=== PATIENT | female | born 1990 | race Caucasian/White ===

== ENCOUNTER 2017-12-11 17:46 | Inpatient (IN) | payer BC ==
[~2017-12-11] VITALS: Ht 167.6 cm; Wt 91.0 kg
[2017-12-11] VITALS (8 sets, daily range): BP systolic 128–131; BP diastolic 78–90; PULSE 80–84; RESP 18; TEMP 98.7
[~2017-12-11 17:46] MED LIST: HYDR25TA5 PO
[2017-12-11] MEDS ORDERED: SODIUM CHLOR 0.9% 1000 ML INJ 1,000 ML OTHER PRN (18:28)
[2017-12-11] MEDS ORDERED: LACTATED RINGER'S 1000 ML INJ 1,000 ML IV SCH (18:28)
[2017-12-11] MEDS ORDERED: LACTATED RINGER'S 1000 ML INJ 1,000 ML IV PRN ×2 (18:28→18:35)
[2017-12-11] MEDS ORDERED: MINERAL OIL 10 ML VIAL TOPICAL PRN ×2 (18:30→18:45)
[2017-12-11] MEDS ORDERED: SODIUM CHLORID 0.9% 500 ML INJ 500 ML IV PRN ×2 (18:30→18:45)
[2017-12-11] MEDS ORDERED: LIDOCAINE HCL 1% 50 ML VIAL I-DERMAL PRN ×2 (18:30→18:45)
[2017-12-11] MEDS ORDERED: ONDANSETRON HCL 4 MG/2 ML VIAL IV PUSH PRN (18:30)
[2017-12-11] MEDS ORDERED: LIDOCAINE HCL 1% 50 ML VIAL INFIL PRN ×2 (18:30→18:45)
[2017-12-11] MEDS ORDERED: OXYTOCIN 30 UNITS-500ML PREMIX 500 ML IV ONE ×2 (18:30→18:45)
[2017-12-11] MEDS ORDERED: CITRIC ACID-SODIUM CITRATE LIQ 30 ML UDC PO SCH ×2 (18:30→18:45)
[2017-12-11] MEDS ORDERED: DINOPROSTONE 10 MG VAG INSERT VAGINAL ONE ×2 (18:30→18:45)
--- NOTE | 2017-12-11 18:41 | HHI.HP ---
HPI Chief Complaint term labor induction Date Seen: Dec 11, 2017 Time Seen: 18:30 Travel History International Travel<30 Days: No Contact w/Intl Traveler<30Days: No Known Affected Area: No History of Present Illness HPI 27 yo G1 with EDC 12/11/17 presents for term labor induction. Seen last in office 12/10/17 with finding of 2+ edema to LE. BP normal, no proteinuria. SVE at that time 1-2/50/-2. D/w pt based on new edema and term status option of labor induction, pt strongly desires. Pain 2-3/10 in low pelvis, cramping and pressure. No VB, no LOF. Good FM. Weeks Gestation: 40 Para: 0 : 1 Last Menstrual Period: Mar 13, 2017 Miscarriage: 0 : 0 History Past Medical History Narrative Medical denies Obstetric History Obstetric History G1 = current Past Surgical History Narrative Surgical denies Family History Family History: Negative Social History Alcohol Use: No Tobacco Use: No Substance Abuse: No Allergies-Medications (Allergen,Severity, Reaction): Coded Allergies: No Known Allergies (Unverified , 08/26/16) Home Meds Reported Medications Hydrochlorothiazide (Hydrochlorothiazide) 25 Mg Tab, 25 MG PO DAILY, #30 TAB 0 Refills 08/26/16 Review of Systems General / Constitutional: Weight Gain, No: Fever, Chills, Other Eyes: No: Diploplia, Blurred Vision, Visual changes, Pain, Photophobia HENT: No: Headaches, Vertigo, Lightheadedness Cardiovascular: No: Irregular Rhythm, Chest Pain or Discomfort, Palpitations, Tachycardia, Syncope, Varicosities, Edema, Cyanosis Respiratory: No: Cough, Short of Breath, Other Gastrointestinal: No: Nausea, Vomiting, Diarrhea Genitourinary: Pelvic Pain (pressure), No: Decreased Urinary Output, Oliguria Musculoskeletal: Edema (2+ b/l abnkles), No: Limited ROM, Weakness, Cramping, Pain Skin: No Rash, No Itching, No Dryness, No Lumps, No Change in Pigmentation, No Change in Nails, No Alopecia, No Lesions Neurologic: No: Weakness, Dizziness, Syncope, Focal Abnormalities, Coordination Problem, Headache, Slurred Speech, Seizures Psychiatric: No: Depression, Suicidal Ideations, Homicidal Ideation Endocrine: No: Heat Intolerance, Cold Intolerance, Polydipsia, Polyuria, Other Physical Exam Narrative GENERAL: Well-nourished, well-developed patient. Puffy appearance SKIN: Warm and dry. HEAD: Normocephalic and atraumatic. EYES: No scleral icterus. No injection or drainage. ENT: No nasal drainage noted. Mucous membranes pink. Airway patent. NECK: Supple, trachea midline. No JVD. CARDIOVASCULAR: Regular rate and rhythm without murmurs, gallops, or rubs. RESPIRATORY: Breath sounds equal bilaterally. No accessory muscle use. BREASTS: deferred ABDOMEN/GI: Abdomen soft, non-tender, bowel sounds present, no rebound, no guarding Gravid to [40] weeks size Fundal Height: [41] GENITOURINARY: External Genitalia: intact and normal in appearance BUS glands: [wnl] Cervix: [mid] Dilatation: [1-2] Effacement: [50] Station: [-2] Presentation: [vtx] Membranes: [intact] Uterine Contractions: [irreg] FHT's: NST pending; +FCA in office 150s EXTREMITIES: No cyanosis; 2+ edema to b/l ankles. BACK: Nontender without obvious deformity. No CVA tenderness. NEUROLOGICAL: Awake and alert. Motor and sensory grossly within normal limits. Five out of 5 muscle strength in all muscle groups. Normal speech. Caprini VTE Risk Assessment Caprini VTE Risk Assessment: No/Low Risk (score <= 1) VTE Pharm Contraindication: High risk for bleeding Caprini Risk Assessment Model Point Value = 1 Point Value = 2 Point Value = 3 Point Value = 5 Age 41-60 Minor surgery BMI > 25 kg/m2 Swollen legs Varicose veins or History of unexplained or recurrent spontaneous Oral contraceptives or hormone replacement Sepsis (< 1 month) Serious lung disease, including pneumonia (< 1 month) Abnormal pulmonary function Acute myocardial infarction Congestive heart failure (< 1 month) History of inflammatory bowel disease Medical patient at bed rest Age 61-74 Arthroscopic surgery Major open surgery (> 45 min) Laparoscopic surgery (> 45 min) Malignancy Confined to bed (> 72 hours) Immobilizing plaster cast Central venous access Age >= 75 History of VTE Family history of VTE Factor V Leiden Prothrombin [id number] Lupus anticoagulant Anticardiolipin antibodies Elevated serum homocysteine Heparin-induced thrombocytopenia Other congenital or acquired thrombophilia Stroke (< 1 month) Elective arthroplasty Hip, pelvis, or leg fracture Acute spinal cord injury (< 1 month) Prophylaxis Regimen Total Risk Factor Score Risk Level Prophylaxis Regimen 0-1 Low Early ambulation 2 Moderate Order ONE of the following: *Sequential Compression Device (SCD) *Heparin 5000 units SQ BID 3-4 Higher Order ONE of the following medications: *Heparin 5000 units SQ TID *Enoxaparin/Lovenox 40 mg SQ daily (WT < 150 kg, CrCl > 30 mL/min) *Enoxaparin/Lovenox 30 mg SQ daily (WT < 150 kg, CrCl > 10-29 mL/min) *Enoxaparin/Lovenox 30 mg SQ BID (WT < 150 kg, CrCl > 30 mL/min) AND/OR *Sequential Compression Device (SCD) 5 or more Highest Order ONE of the following medications: *Heparin 5000 units SQ TID (Preferred with Epidurals) *Enoxaparin/Lovenox 40 mg SQ daily (WT < 150 kg, CrCl > 30 mL/min) *Enoxaparin/Lovenox 30 mg SQ daily (WT < 150 kg, CrCl > 10-29 mL/min) *Enoxaparin/Lovenox 30 mg SQ BID (WT < 150 kg, CrCl > 30 mL/min) AND *Sequential Compression Device (SCD) Data Data Vital Signs Reviewed: Yes Orders Orders Admit To Inpatient (12/11/17 ) Code Status (12/11/17 18:28) Vital Signs (Adult) .Per protocol (12/11/17 18:28) Activity Oob Ad Melania (12/11/17 18:28) Heart (12/11/17 18:28) Amnioinfusion (12/11/17 18:28) Urinary Catheter Management .ONCE (12/11/17 18:28) Diet Liquid (12/11/17 Dinner) Lactated Ringer's 1000 Ml Inj (Lr 1000 M (12/11/17 18:28) Lactated Ringer's 1000 Ml Inj (Lr 1000 M (12/11/17 18:28) Sodium Chlorid 0.9% 500 Ml Inj (Ns 500 M (12/11/17 18:30) Sodium Chlor 0.9% 1000 Ml Inj (Ns 1000 M (12/11/17 18:48) Lidocaine 1% Inj (50 Ml) (Xylocaine 1% I (12/11/17 18:30) Citric Acid-Sodium Citrate Liq (Bicitra (12/11/17 18:30) Ondansetron Inj (Zofran Inj) (12/11/17 18:30) Fentanyl Inj (Fentanyl Inj) (12/11/17 18:30) Fentanyl Inj (Fentanyl Inj) (12/11/17 18:30) Complete Blood Count With Diff (12/11/17:) Hold Clot (12/11/17:) Abo/Rh Blood Type (12/11/17 18:) Urinalysis - C+S If Indicated (12/11/17:) Drug Screen, Random Urine (12/11/17) Ob/Psych Drug Screen, Urine (12/11/17:) Resp Oxygen Non Rebreathe Mask (12/11/17 ) ^ Epidural / Intrathecal Infus (12/11/17:) Oxytocin 30 Units-500ml Premix (Pitocin (12/11/17 18:) Lidocaine 1% Inj (50 Ml) (Xylocaine 1% I (12/11/17 18:30) Light Mineral Oil (Muri-Lube Oil) (12/11/17 18:30) ^ Labor Induction (12/11/17 18:) ^ Vaginal Insert (12/11/17 18:) ^ Vaginal Lavage (12/11/17 18:) Heart (12/11/17 18:) Sodium Chlor 0.9% 1000 Ml Inj (Ns 1000 M (12/11/17 18:28) Dinoprostone Vag Insert (Cervidil Vag In (12/11/17 18:30) Inpatient Certification (12/11/17 ) Specimen To Be Collected PRN (12/11/17 18:28) Specimen To Be Collected PRN (12/11/17 18:) Group B Strep: Negative Assessment/Plan Problem List: (1) Term ICD Codes: Z34.80 - Encounter for supervision of other normal , unspecified trimester Status: Acute Assessment and Plan 27 yo G1 with guardado female IUP at 40w0d by LMP c/w 8w6d ultrasound, admit for term labor induction, new LE edema b/l 1) IOL: start with cervidil overnight, additional induction methods as needed, pt aware of risks of induction including failure, need for , consents for induction 2) GBS negative 3) LE edema: BP wnl in office, no proteinuria, will monitor closely 4) status: vtx, female, EFW 8.5# 5) dispo: not meeting criteria, anticipate d/c on PPD#2-3 Discharge Planning routine, 2-3d PP Abi Jimenez MD Dec 11, 2017 18:41
[2017-12-11] MEDS ORDERED: SODIUM CHLORIDE 0.9% FLUSH 10 ML FLUSH IV FLUSH PRN (18:45)
[2017-12-11] MEDS ORDERED: SODIUM CHLOR 0.9% 1000 ML INJ 1,000 ML IV PRN ×2 (18:48→18:55)
[2017-12-11 19:13] LABS: AUTOMATED NEUTROPHIL # 11.4 TH/MM3 (1.8-7.7); BASOPHIL % 0.1 % (0.0-2.0); EOSINOPHIL % 0.3 % (0.0-4.0); HEMATOCRIT 37.4 % (35.0-46.0); HEMOGLOBIN 12.9 GM/DL (11.6-15.3); LYMPH % 13.7 % (9.0-44.0); LYMPHOCYTE # 1.9 TH/MM3 (1.0-4.8); MEAN CELL VOLUME 96.4 FL (80.0-100.0); MEAN CORPUSCULAR HEMOGLOBIN 33.2 PG (27.0-34.0); MEAN CORPUSCULAR HGB CONC 34.5 % (32.0-36.0); MEAN PLATELET VOLUME 9.4 FL (7.0-11.0); MONO % 5.4 % (0.0-8.0); MONOCYTE # 0.8 TH/MM3 (0-0.9); NEUT % 80.5 % (16.0-70.0); PLATELET COUNT 171 TH/MM3 (150-450); RED BLOOD COUNT 3.88 MIL/MM3 (4.00-5.30); RED CELL DISTRIBUTION WIDTH 13.8 % (11.6-17.2); WHITE BLOOD COUNT 14.2 TH/MM3 (4.0-11.0)
[2017-12-11 19:15] LABS: BACTERIA, URINE RARE /hpf; BILIRUBIN, URINE NEG (NEG); BLOOD, URINE NEG (NEG); GLUCOSE,URINE NEG (NEG); KETONE, URINE TRACE mg/dL (NEG); NITRITE,URINE NEG (NEG); PH, URINE 6.5 (5.0-8.5); URINE COLOR LIGHT-YELLOW (YELLW/STRAW); URINE LEUKOCYTE ESTERASE NEG (NEG)
[2017-12-11] MEDS: LACTATED RINGER'S 1000 ML INJ 1,000 ML IV SCH (19:19)
[2017-12-11] MEDS: SODIUM CHLORIDE 0.9% FLUSH 10 ML FLUSH IV FLUSH SCH (21:00)
[2017-12-11 22:54] LABS: ALBUMIN 3.2 GM/DL (3.4-5.0); AST (GOT) 18 U/L (15-37); BICARBONATE 21.3 MEQ/L (21.0-32.0); BLOOD UREA NITROGEN 4 MG/DL (7-18); CALCIUM 9.6 MG/DL (8.5-10.1); CHLORIDE 105 MEQ/L (98-107); GLOMERULAR FILTRATION RATE 146 ML/MIN (>89); GLUCOSE,RANDOM 94 MG/DL (74-106); SODIUM (NA) 138 MEQ/L (136-145)
[2017-12-11 22:55] LABS: ALT (GPT) 20 U/L (10-53)
[2017-12-11 22:57] LABS: ALKALINE PHOSPHATASE 229 U/L (45-117); TOTAL BILIRUBIN ADULT 0.3 MG/DL (0.2-1.0); TOTAL PROTEIN 7.1 GM/DL (6.4-8.2)
[2017-12-12] VITALS (106 sets, daily range): BP systolic 81–155; BP diastolic 36–121; PULSE 19–191; RESP 16–20; TEMP 97.8–98.5
--- NOTE | 2017-12-12 08:11 | HHI.PR ---
RATING EXAMINER Note Note S: Patient doing well, minimal pain, slight headache, no visual changes, epigastric pain or right upper quadrant pain. Occasionally feel her contractions, no vaginal bleeding or loss of fluid. O: Exam: 4 cm/70-80% effaced/-2 station/soft/midposition. Martinez score 8 FHTs: 130s, moderate variability, accelerations present, no decelerations TOCO: Contractions are regular every 3-5 minutes A/P 27-year-old G1 at 40 weeks and 1 day by L/8 here for social IOL. 1. IUP: Category 1 tracing -Cephalic on exam, GBS negative, EFW 7/2-8 pounds, female fetus. 2. Induction of labor: Status post Cervidil overnight, BS of 8, begin Pitocin, AROM later, may desire epidural. 3. Gestational hypertension: Diagnosed on admission, HELLP labs WNL, P:C 0.2, slight headache, no visual sx, discussed preeclampsia precautions, if MALONE worsens consider magnesium for seizure prophylaxis. 4. Glucose intolerance: Failed 1 hour 170, passed 3 hour. Nash Soto MD Dec 12, 2017 08:11
[2017-12-12] MEDS ORDERED: OXYTOCIN 30 UNITS-500ML PREMIX 500 ML IV PRN (08:15)
[2017-12-12] MEDS: SODIUM CHLORIDE 0.9% FLUSH 10 ML FLUSH IV FLUSH SCH ×2 (09:00→21:12)
[2017-12-12] MEDS: LACTATED RINGER'S 1000 ML INJ 1,000 ML IV SCH ×2 (12:00→18:35)
[2017-12-12] MEDS ORDERED: ePHEDrine/NS 25 MG/5 ML SYRINGE ONE (12:07)
[2017-12-12] MEDS ORDERED: fentaNYL 2MCG-BUPIV 0.125% INJ 100 ML ONE (12:07)
[2017-12-12] MEDS ORDERED: NO SYSTEM NARCOTICS PRN (14:15)
[2017-12-12] MEDS ORDERED: fentaNYL 2MCG-BUPIV 0.125% 100 ML EPIDURAL SCH (14:15)
[2017-12-12] MEDS ORDERED: DO NOT ADMINISTER ANTICOAGULANTS PRN (14:15)
[2017-12-12] MEDS ORDERED: ePHEDrine/NS 25 MG/5 ML SYRINGE IV PUSH PRN (14:15)
[2017-12-12] MEDS ORDERED: DIPHTH/TETANUS/ACEL PERTUSSIS (BOOSTER) 0.5 ML VIAL/PFS IM ONE (16:00)
[2017-12-12] MEDS ORDERED: MEASLES, MUMPS, RUBELLA VACCINE 0.5 ML VIAL SQ ONE (16:00)
[2017-12-12] MEDS ORDERED: LIDOCAINE HCL 1% 20 ML VIAL ONE (17:37)
--- NOTE | 2017-12-12 19:42 | PD.OB.DELI ---
Weeks gestation: 40 (40 weeks and 1 day) Pt started active labor?: No Medical induction of labor?: No Artificial rupture of membrane: No Anesthesia: Epidural Episiotomy: None Vaginal Delivery: Normal, Spontaneous Presentation: Occiput anterior, Vertex Nuchal Cord: None Delayed cord clamping (45 sec): Yes Shoulder Dystocia: Other (No dystocia) : Female, Single Delivery date: Dec 12, 2017 Delivery time: 18:53 One Minute : 9 Ten Minute : 9 Placenta: Spontaneous delivery, Intact, 3 vessel cord Laceration: Vaginal laceration, Perineal laceration, 3 deg (3a laceration), Involving anal sphincter Repair: Vicryl interrupted, Vicryl running Estimated blood loss: 400 cc Additional Information Preoperative diagnoses: 1. Intrauterine 40 weeks and 1 day 2. Gestational hypertension 3. Glucose intolerance Findings: IIIa perineal laceration, repaired in standard fashion, reinforced external anal sphincter with interrupted 3-0 Vicryl. Specimens: Placenta to disposal Complications: None Counts: Correct 2 Description of procedure: The patient began pushing after the bed was broken down, the head upon was allowed to restitute naturally after delivery with a supported perineum, with gentle downward guidance the anterior shoulder was delivered followed by gentle upper guidance for the posterior shoulder, the torso and lower extremities delivered with ease with continued perineal support. The had spontaneous cry and was placed on mom's abdomen for skin to skin contact, we allowed delayed cord clamping. After the cord was clamped and cut, cord blood was obtained. Pitocin was bolused and with fundal massage the placenta was delivered, there was minimal bleeding from above and uterus was firm. The perineum vagina and cervix were inspected and and a 3a laceration was found and repaired in standard fasion, a rectal exam exam was done to make sure prior to repair the extent of laceration. The patient tolerated the procedure well and was left in the birthing suite with her . Nash Soto MD Dec 12, 2017 19:42
[2017-12-12] MEDS ORDERED: SODIUM CHLORIDE 0.9% FLUSH 10 ML FLUSH IV FLUSH PRN (19:45)
[2017-12-12] MEDS ORDERED: WITCH HAZEL 50%/GLYCERIN 12.5% 40 PAD JAR TOPICAL PRN (19:45)
[2017-12-12] MEDS ORDERED: ZOLPIDEM TARTRATE 5 MG TAB PO PRN (19:45)
[2017-12-12] MEDS ORDERED: BENZOCAINE 20% TOPICAL SPRAY 60 ML CAN TOPICAL PRN (19:45)
[2017-12-12] MEDS ORDERED: ACETAMINOPHEN 325 MG TAB PO PRN (19:45)
[2017-12-12] MEDS ORDERED: ALUMINUM/MAGNESIUM/SIMETH 30 ML CUP PO PRN (19:45)
[2017-12-12] MEDS ORDERED: oxyCODONE/ACETAMINOPHEN 5 MG/325 MG TAB PO PRN ×2 (19:45)
[2017-12-12] MEDS ORDERED: OXYTOCIN 30 UNITS-500ML PREMIX 500 ML IV SCH (19:45)
[2017-12-12] MEDS ORDERED: ONDANSETRON ODT 4 MG TAB PO PRN (19:45)
[2017-12-12] MEDS ORDERED: IBUP-232 PO (19:50)
[2017-12-12] MEDS ORDERED: NORC5TAB PO (19:51)
--- NOTE | 2017-12-12 19:52 | HHI.DCPOC ---
Discharge Care Plan Diagnosis: (1) 40 weeks gestation of (2) Normal vaginal delivery (3) Gestational hypertension (4) Third degree perineal laceration during delivery, IIIa Your Health Problems Are: Vaginal delivery Report Symptoms to Your Doctor -Temperature above 100.5 degrees -Redness, of incision or excessive or foul smelling drainage -Unusual pain or calf pain -Increased vaginal bleeding -Painful or difficulty urinating -Feelings of extreme sadness or anxiety after 2 weeks Goals to Promote Your Health * To prevent worsening of your condition and complications * To maintain your health at the optimal level Directions to Meet Your Goals Take your medications as prescribed Follow your dietary instruction Follow activity as directed Ensure plenty of rest for recovery Drink fluids for hydration Keep your appointments as scheduled Take your immunizations and boosters as scheduled If your symptoms worsen call your PCP, if no PCP go to Urgent Care Center or Emergency Room Smoking is Dangerous to Your Health. Avoid second hand smoke Call the 24-hour crisis hotline for domestic abuse at Nash Soto MD Dec 12, 2017 19:51
[2017-12-12] MEDS: IBUPROFEN 800 MG TAB PO PRN (19:54)
[2017-12-13] MEDS: IBUPROFEN 800 MG TAB PO PRN ×3 (05:58→23:22)
--- NOTE | 2017-12-13 07:40 | HHI.OB ---
Subjective Post Day: 1 Remarks Doing well, pain controlled, minimal vaginal bleeding. Objective Vitals/I&O Vital Signs Date Time Temp Pulse Resp B/P (MAP) Pulse Ox O2 Delivery O2 Flow Rate FiO2 12/12/17 21:11 97.9 12/12/17 21:11 89 18 122/76 (91) 12/12/17 20:45 86 120/67 (84) 12/12/17 20:30 93 124/65 (84) 12/12/17 20:18 98.0 16 12/12/17 20:16 95 129/67 (87) 12/12/17 20:15 18 12/12/17 20:00 94 18 139/98 (112) 12/12/17 19:48 96 127/74 (91) 12/12/17 19:46 118 12/12/17 19:01 111 123/44 (70) 12/12/17 18:50 145 18 18:45 144 127/87 (100) 12/12/17 18:45 18 12/12/17 18:32 111 129/68 (88) 12/12/17 18:30 119 12/12/17 18:15 20 12/12/17 17:25 99 12/12/17 17:20 99 12/12/17 17:15 85 12/12/17 17:15 103 155/121 (132) 12/12/17 17:01 108 141/83 (102) 12/12/17 17:00 18 12/12/17 17:00 97.8 19 12/12/17 17:00 118 12/12/17 16:55 112 12/12/17 16:50 113 18 16:46 105 142/68 (92) 12/12/17 16:45 105 18 16:40 112 12/12/17 16:35 100 12/12/17 16:30 112 12/12/17 16:30 102 17 133/96 (108) 12/12/17 16:25 98 18 16:20 87 12/12/17 16:15 99 120/76 (91) 12/12/17 16:15 79 12/12/17 16:10 77 18 16:05 77 12/12/17 16:01 96 114/84 (94) 1618 16:00 86 18 16/18 15:55 85 /16/18 15:50 94 16/18 15:46 88 123/74 (90) 1618 15:45 90 /16/18 15:40 126 /16/18 15:35 95 /16/18 15:31 125 119/85 (96) 1618 15:30 99 1618 15:25 94 1618 15:20 93 16/18 15:15 86 1618 15:10 85 1618 15:05 90 1618 15:01 94 126/80 (95) 18 15:00 17 1618 15:00 92 1618 14:55 84 1618 14:50 89 1618 14:45 92 16/18 14:40 78 1618 14:35 87 1618 14:31 77 126/81 (96) 1618 14:30 79 /16/18 14:30 18 16/18 14:25 77 /16/18 14:20 76 1618 14:15 78 16/18 14:15 75 124/81 (95) 1618 14:05 75 /16/18 14:01 72 114/75 (88) 1618 14:00 83 16/18 13:55 80 16/18 13:50 68 16/18 13:46 191 96/66 (76) 1618 13:45 89 /16/18 13:40 88 16/18 13:35 79 /16/18 13:30 74 3/16/18 13:30 83 111/78 (89) 1618 13:29 98.0 17 316/18 13:25 77 3/16/18 13:20 83 3/16/18 13:15 71 16/18 13:15 80 117/68 (84) 1618 13:10 83 16/18 13:09 110/72 (85) 1618 13:09 74 3/16/18 13:06 74 12/12/17 13:05 75 12/12/17 13:03 18 12/12/17 13:01 85 128/72 (90) 12/12/17 13:00 84 12/12/17 12:56 90 131/75 (93) 12/12/17 12:55 74 12/12/17 12:51 80 17 128/69 (88) 12/12/17 12:50 77 12/12/17 12:46 78 128/68 (88) 12/12/17 12:45 86 12/12/17 12:43 78 18 126/74 (91) 12/12/17 12:41 87 81/36 (51) 12/12/17 12:40 91 12/12/17 12:35 84 12/12/17 12:35 91 139/74 (95) 12/12/17 12:33 103 145/75 (98) 12/12/17 11:57 17 12/12/17 11:30 18 12/12/17 10:25 17 12/12/17 10:18 81 127/77 (94) 12/12/17 09:16 18 12/12/17 09:15 87 124/77 (93) Objective Remarks GENERAL: Well-nourished, well-developed patient. CARDIOVASCULAR: Regular rate and rhythm without murmurs, gallops, or rubs. RESPIRATORY: Breath sounds equal bilaterally. No accessory muscle use. ABDOMEN/GI: Abdomen soft, non-tender. Fundus: Firm, non-tender at umbilicus. GENITOURINARY: Light to moderate bleeding. EXTREMITIES: No cyanosis or edema, non-tender, without signs of DVT. Medications and IVs Current Medications Medications (Trade) Dose Ordered Sig/Valentín Route Start Time Stop Time Status Last Admin (Xylocaine 1% Inj (50 ml)) 0.1 ml UNSCH X1 PRN I-DERMAL 12/11/17 18:45 12/14/17 18:44 (Xylocaine 1% Inj (50 ml)) 10 ml UNSCH X1 PRN INFIL 12/11/17 18:45 12/13/17 18:44 (Muri-Lube Oil) 10 ml UNSCH PRN TOPICAL 12/11/17 18:45 Miscellaneous Information No systemic narcotics to be given except... UNSCH PRN .XX 12/12/17 14:15 12/13/17 14:14 Miscellaneous Information DO NOT ADMINISTER ANY ANTICOAGUL... UNSCH PRN .XX 12/12/17 14:15 12/13/17 14:14 (ePHEDrine/NS 25 MG/5 ML SYR) 10 mg UNSCH PRN IV PUSH 12/12/17 14:15 12/13/17 14:14 (NS Flush) 2 ml BID IV FLUSH 12/12/17 21:00 12/12/17 21:12 (NS Flush) 2 ml UNSCH PRN IV FLUSH 12/12/17 19:45 (Tylenol) 650 mg Q4H PRN PO 12/12/17 19:45 (Motrin) 800 mg Q8H PRN PO 12/12/17 19:45 12/13/17 05:58 (Percocet 5-325 Mg) 1 tab Q4H PRN PO 12/12/17 19:45 (Percocet 5-325 Mg) 2 tab Q4H PRN PO 12/12/17 19:45 (Americaine 20% Top Spr) 1 spray Q4H PRN TOPICAL 12/12/17 19:45 12/12/17 21:21 (Tucks Pads) 1 applic QID PRN TOPICAL 12/12/17 19:45 12/12/17 21:21 (Gisela-Colace) 2 tab Q12H PO 12/12/17 21:00 (Ambien) 5 mg HS PRN PO 12/12/17 19:45 (Mag-Al Plus Susp Liq) 15 ml Q8H PRN PO 12/12/17 19:45 (Zofran Odt) 4 mg Q6H PRN PO 12/12/17 19:45 Assessment/Plan Problem List: (1) Term ICD Codes: Z34.80 - Encounter for supervision of other normal , unspecified trimester Status: Acute Assessment and Plan 27 yo s/p at 40.1w 1) PPD#1: Afebrile, vital signs stable, anticipate discharge home later today or tomorrow. Discussed discharge precautions, expectations, and follow-up. 2) gestational hypertension: Blood pressures mostly normotensive following delivery, no signs or symptoms of preeclampsia, discussed these sx for after discharge, will follow up in 1 week for blood pressure check. Nash Soto MD Dec 13, 2017 07:39
[2017-12-13 09:00] VITALS: BP 112/65; PULSE 72; RESP 18; TEMP 97.8
[2017-12-13] MEDS: DOCUSATE SODIUM 50 MG/SENNA 8.6 MG TAB PO SCH ×2 (14:27→21:24)
[2017-12-13] MEDS: SODIUM CHLORIDE 0.9% FLUSH 10 ML FLUSH IV FLUSH SCH (14:27)
[2017-12-13 21:30] VITALS: BP 113/72; PULSE 74; RESP 20; TEMP 98.9
[2017-12-14] MEDS ORDERED: COLA100C5 PO (08:54)
--- NOTE | 2017-12-14 08:56 | HHI.OB ---
Subjective Post Day: 2 Remarks Doing well, pain controlled, minimal vaginal bleeding. Objective Vitals/I&O Vital Signs Date Time Temp Pulse Resp B/P (MAP) Pulse Ox O2 Delivery O2 Flow Rate FiO2 12/13/17 21:30 74 20 113/72 (86) 12/13/17 21:30 98.9 12/13/17 09:00 97.8 72 18 112/65 (81) Objective Remarks GENERAL: Well-nourished, well-developed patient. CARDIOVASCULAR: Regular rate and rhythm without murmurs, gallops, or rubs. RESPIRATORY: Breath sounds equal bilaterally. No accessory muscle use. ABDOMEN/GI: Abdomen soft, non-tender. Fundus: Firm, non-tender at umbilicus. GENITOURINARY: Light to moderate bleeding. EXTREMITIES: No cyanosis or edema, non-tender, without signs of DVT. Medications and IVs Current Medications Medications (Trade) Dose Ordered Sig/Valentín Route Start Time Stop Time Status Last Admin (Xylocaine 1% Inj (50 ml)) 0.1 ml UNSCH X1 PRN I-DERMAL 12/11/17 18:45 12/14/17 18:44 (Muri-Lube Oil) 10 ml UNSCH PRN TOPICAL 12/11/17 18:45 (NS Flush) 2 ml BID IV FLUSH 12/12/17 21:00 12/13/17 14:27 (NS Flush) 2 ml UNSCH PRN IV FLUSH 12/12/17 19:45 (Tylenol) 650 mg Q4H PRN PO 12/12/17 19:45 (Motrin) 800 mg Q8H PRN PO 12/12/17 19:45 12/13/17 23:22 (Percocet 5-325 Mg) 1 tab Q4H PRN PO 12/12/17 19:45 (Percocet 5-325 Mg) 2 tab Q4H PRN PO 12/12/17 19:45 (Americaine 20% Top Spr) 1 spray Q4H PRN TOPICAL 12/12/17 19:45 12/12/17 21:21 (Tucks Pads) 1 applic QID PRN TOPICAL 12/12/17 19:45 12/12/17 21:21 (Gisela-Colace) 2 tab Q12H PO 3/16/18 21:00 12/13/17 21:24 (Ambien) 5 mg HS PRN PO 12/12/17 19:45 (Mag-Al Plus Susp Liq) 15 ml Q8H PRN PO 12/12/17 19:45 (Zofran Odt) 4 mg Q6H PRN PO 12/12/17 19:45 Assessment/Plan Problem List: (1) Term ICD Codes: Z34.80 - Encounter for supervision of other normal , unspecified trimester Status: Acute Assessment and Plan 27 yo s/p at 40.1w 1) PPD#2: Afebrile, vital signs stable, anticipate discharge home today, baby has hyperbili, may need observation, pt aware of stay close and rooming in options. later today or tomorrow. Discussed discharge precautions, expectations , and follow-up. Pt w/ hx of PTSD and discussed PP blues and depression sn/sx. 2) gestational hypertension: Blood pressures mostly normotensive following delivery, no signs or symptoms of preeclampsia, discussed these sx for after discharge, will follow up in 1 week for blood pressure check. Nash Soto MD Dec 14, 2017 08:56
[2017-12-14] MEDS: SODIUM CHLORIDE 0.9% FLUSH 10 ML FLUSH IV FLUSH SCH (10:20)
[2017-12-14] MEDS: DOCUSATE SODIUM 50 MG/SENNA 8.6 MG TAB PO SCH (13:48)
[2017-12-14] MEDS: IBUPROFEN 800 MG TAB PO PRN (13:48)
== END 2017-12-14 18:11 | disposition home or self-care (01) | DRG 775 ==
LOC: H2EA 17:46 → H1EA 12-12 21:06
PROVIDERS: ADMIT Obstetrics & Gynecology; ATTEND Obstetrics & Gynecology
PROC: 10E0XZZ Delivery of Products of Conception, External Approach (ICD-10-PCS; principal; 2017-12-12)
PROC: 0DQR0ZZ Repair Anal Sphincter, Open Approach (ICD-10-PCS; 2017-12-12)
PROC: 3E0P7VZ Introduction of Hormone into Female Reproductive, Via Natural or Artificial Opening (ICD-10-PCS; 2017-12-12)
PROC: 00HU33Z Insertion of Infusion Device into Spinal Canal, Percutaneous Approach (ICD-10-PCS; 2017-12-12)
PROC: 3E0R3BZ Introduction of Anesthetic Agent into Spinal Canal, Percutaneous Approach (ICD-10-PCS; 2017-12-12)
PROC: 0T9B70Z Drainage of Bladder with Drainage Device, Via Natural or Artificial Opening (ICD-10-PCS; 2017-12-12)
DX: O70.20 Third degree perineal laceration during delivery, unspecified (principal); E74.39 Other disorders of intestinal carbohydrate absorption; O13.4 Gestational [pregnancy-induced] hypertension without significant proteinuria, complicating childbirth; R60.0 Localized edema; F43.10 Post-traumatic stress disorder, unspecified; Z37.0 Single live birth; Z3A.40 40 weeks gestation of pregnancy
CPT/HCPCS: 59025; 80053; 80307; 81001; 82570; 84156; 85025; 86900; 86901; 90707; 90715; G0481; J2590; J3010; J7120